=== PATIENT | male | born 1985 | race American Indian/Alaskan Native ===

== ENCOUNTER 2021-09-22 11:35 | Emergency (ER) | payer SELFPAY ==
[2021-09-22] MEDS ORDERED: TETANUS,DIPH,PERTUSS(ACELL) VACCINE 0.5 ML SYRINGE IM ONE (13:22)
--- NOTE | 2021-09-22 14:01 | XRay Report ---
RIGHT ANKLE 4 VIEW(S) INDICATION / CLINICAL INFORMATION: ankle pain COMPARISON: None available. FINDINGS: BONES / JOINT(S): Moderate widening of medial ankle clear space measuring 7 mm from deltoid ligament disruption/instability. Mildly displaced fracture of posterior malleolus. No significant arthritis. SOFT TISSUES: Moderate lateral and mild medial ankle soft tissue swelling ADDITIONAL FINDINGS: None. Signer Name: Bal Resendez MD Signed: 09/22/2021 1:57 PM Workstation Name: [id number]
--- NOTE | 2021-09-22 14:08 | XRay Report ---
RIGHT HAND 3 VIEW(S) INDICATION / CLINICAL INFORMATION: right hand injury COMPARISON: None available. FINDINGS: BONES / JOINT(S): No acute fracture or subluxation. No significant arthritis. SOFT TISSUES: No significant abnormality. ADDITIONAL FINDINGS: None. Signer Name: Bal Resendez MD Signed: 09/22/2021 2:04 PM Workstation Name: [id number]
--- NOTE | 2021-09-22 14:17 | Emergency Department Report ---
- General Chief Complaint: Wound/Laceration Stated Complaint: HAND PAIN Time Seen by Provider: 09/22/21 13:16 Source: patient Mode of arrival: Ambulatory Limitations: No Limitations - History of Present Illness Initial Comments: This is a 36-year-old male nontoxic, well nourished in appearance, no acute signs of distress presents to the ED with c/o of right hand/lower lip laceration and right ankle pain with swelling that occurred yesterday around 3 PM. Patient stated that he injured himself while at work and a hammer and twisted his ankle. Patient denies decreased sensation or range of motion but has pain with range of motion. Patient stated bleeding is under control. Denies any numbness, tingling, fever, chills, nausea, vomiting, chest pain, shortness of breath, hea dache or stiff neck. Patient denies any allergies to significant past medical history. Patient is that he is not up-to-date with tetanus. -: days(s) (1) Extremity Location: Right: Hand, Ankle Place: work Patient Tetanus UTD: No Context: accidental Associated Symptoms: pain. denies: loss of feeling/numbness, suspect foreign body present, unable to move injured part, weakness followed by dizziness, nausea/vomiting, fever - Related Data Previous Rx's Medication Instructions Recorded Last Taken Type Naproxen 500 mg PO Q12H PRN #12 tab 09/22/21 Unknown Rx Sulfamethoxazole/Trimethoprim 1 each PO BID #14 tab 09/22/21 Unknown Rx [Bactrim DS TAB] Allergies Allergy/AdvReac Type Severity Reaction Status Date / Time No Known Allergies Allergy Verified 09/22/21 12:07 ED Review of Systems ROS: Stated complaint: HAND PAIN Other details as noted in HPI Comment: All other systems reviewed and negative Constitutional: denies: chills, fever Eyes: denies: eye pain, eye discharge, vision change ENT: denies: ear pain, throat pain Respiratory: denies: cough, shortness of breath, wheezing Cardiovascular: denies: chest pain, palpitations Endocrine: no symptoms reported Gastrointestinal: denies: abdominal pain, nausea, diarrhea Genitourinary: denies: urgency, dysuria Musculoskeletal: denies: back pain, joint swelling, arthralgia Skin: denies: rash, lesions Neurological: denies: headache, weakness, paresthesias Psychiatric: denies: anxiety, depression Hematological/Lymphatic: denies: easy bleeding, easy bruising ED Past Medical Hx - Medications Home Medications: Home Medications Medication Instructions Recorded Confirmed Last Taken Type Naproxen 500 mg PO Q12H PRN #12 tab 09/22/21 Unknown Rx Sulfamethoxazole/Trimethoprim 1 each PO BID #14 tab 09/22/21 Unknown Rx [Bactrim DS TAB] ED Physical Exam - General Limitations: No Limitations General appearance: alert, in no apparent distress - Head Head exam: Present: normocephalic - Expanded Head Exam Expanded Head exam: Present: laceration 1 - 1 cm superifical lac - Eye Eye exam: Present: normal appearance, EOMI - Neck Neck exam: Present: normal inspection, full ROM. Absent: lymphadenopathy - Respiratory Respiratory exam: Absent: respiratory distress - Cardiovascular Cardiovascular Exam: Present: regular rate - Extremities Exam Extremities exam: Present: full ROM, tenderness, normal capillary refill. Absent: joint swelling - Expanded Upper Extremity Exam Right General: Present: normal inspection Shoulder Exam: Present: normal inspection, full ROM. Absent: tenderness, swelling Upper Arm exam: Present: normal inspection, full ROM. Absent: tenderness, swelling Elbow exam: Present: normal inspection, full ROM. Absent: tenderness, swelling Forearm Wrist exam: Present: normal inspection, full ROM. Absent: tenderness, swelling, abrasion, laceration, ecchymosis, deformity, crepidus, dislocation, erythema, tenderness over anatomical snuff box, pain with axial thumb loading Hand Wrist exam: Present: full ROM, tenderness, laceration. Absent: swelling, abrasion, ecchymosis, deformity, crepidus, dislocation, erythema, amputation, nail avulsion, subungual hematoma Hand L/R Front: 1 - Positive: laceration (4 cm superifical lac) Vascular: Present: normal capillary refill. Absent: vascular compromise (Neurovascular within normal limits) - Expanded Lower Extremity Exam Right Hip exam: Present: normal inspection, full ROM. Absent: tenderness, swelling Upper Leg exam: Present: normal inspection, full ROM. Absent: tenderness, swelling Knee exam: Present: normal inspection, full ROM. Absent: tenderness, swelling Lower Leg exam: Present: normal inspection, full ROM. Absent: tenderness, swelling, abrasion, laceration, ecchymosis, deformity, crepidus, dislocation, erythema, palpable cord, Eligio's sign Ankle exam: Present: normal inspection, full ROM, swelling. Absent: tenderness, abrasion, laceration, ecchymosis, deformity, crepidus, dislocation, erythema, anterior draw sign Foot/Toe exam: Present: normal inspection, full ROM. Absent: tenderness, swelling Neuro vascular tendon exam: Present: no vascular compromise Gait: Positive: observed and limited by pain - Back Exam Back exam: Present: normal inspection, full ROM. Absent: tenderness, CVA tenderness (R), CVA tenderness (L), muscle spasm, paraspinal tenderness, vertebral tenderness, rash noted - Neurological Exam Neurological exam: Present: alert, oriented X3, normal gait - Psychiatric Psychiatric exam: Present: normal affect, normal mood - Skin Skin exam: Present: warm, dry, intact, normal color. Absent: rash ED Course Vital Signs 09/22/21 12:05 Temperature 98 F Pulse Rate 99 H Respiratory 16 Rate Blood Pressure 126/81 [Right] O2 Sat by Pulse 100 Oximetry - Reevaluation(s) Reevaluation #1: 09/22/21 14:17 Patient is speaking in full sentences with no signs of distress noted. ED Medical Decision Making - Radiology Data [facility] [address] [place] [address] XRay Report Signed Patient: MELVIN MONTENEGRO MR#: [id number] 3 : 1985 Acct:[id number] Age/Sex: 36 / M ADM Date: 09/22/21 Loc: ED Attending Dr: Ordering Physician: NORA WEATHERS NP Date of Service: 09/22/21 Procedure(s): XR hand 3+V RT Accession Number(s): [id number] cc: NORA WEATHERS NP Fluoro Time In Minutes: RIGHT HAND 3 VIEW(S) INDICATION / CLINICAL INFORMATION: right hand injury COMPARISON: None available. FINDINGS: BONES / JOINT(S): No acute fracture or subluxation. No significant arthritis. SOFT TISSUES: No significant abnormality. ADDITIONAL FINDINGS: None. Signer Name: Bal Resendez MD Signed: 09/22/2021 2:04 PM Workstation Name: [id number] Transcribed By: WALT Dictated By: Bal Resendez MD Electronically Authenticated By: Bal Resendez MD Signed Date/Time: 09/22/21 1404 DD/ 02 TD/TT: [facility] [address] [place] [address] XRay Report Signed Patient: MELVIN MONTENEGRO MR#: [id number] 3 : 1985 Acct:[id number] Age/Sex: 36 / M ADM Date: 09/22/21 Loc: ED Attending Dr: Ordering Physician: NORA WEATHERS NP Date of Service: 09/22/21 Procedure(s): XR ankle 3+V RT Accession Number(s): [id number] cc: NORA WEATHERS NP Fluoro Time In Minutes: RIGHT ANKLE 4 VIEW(S) INDICATION / CLINICAL INFORMATION: ankle pain COMPARISON: None available. FINDINGS: BONES / JOINT(S): Moderate widening of medial ankle clear space measuring 7 mm from deltoid ligament disruption/instability. Mildly displaced fracture of posterior malleolus. No significant arthritis. SOFT TISSUES: Moderate lateral and mild medial ankle soft tissue swelling ADDITIONAL FINDINGS: None. Signer Name: Bal Resendez MD Signed: 09/22/2021 1:57 PM Workstation Name: [id number] Transcribed By: TL Dictated By: Bal Resendez MD Electronically Authenticated By: Bal Resendez MD Signed Date/Time: 09/22/21 1357 DD/ 1356 TD/TT: - Medical Decision Making This is a 36-year-old male that presents with laceration and ankle strain. Patient is stable and was examined by me. The laceration has been cleaned and sterile dressing applied. Due to symptoms of laceration occurred more than 16 hours, laceration closure will not be performed at this time. A sterile dressing has been applied. Patient received a booster tetanus in the ER. Patient was educated on proper wound care. Patient is notified of the imaging results with no questions noted by the patient. Patient is discharged with Bactrim. Patient received a ankle stirrup. Patient was instructed to refer to Follow-up with a primary care and orthopedic doctor in 3-5 days or if symptoms worsen and continue return to emergency room as soon as possible. At time of discharge, the patient does not seem toxic or ill in appearance. No acute signs of distress noted. Patient agrees to discharge treatment plan of care. No further questions noted by the patient. Critical care attestation.: If time is entered above; I have spent that time in minutes in the direct care of this critically ill patient, excluding procedure time. ED Disposition Clinical Impression: Laceration of right hand Qualifiers: Encounter type: initial encounter Foreign body presence: without foreign body Qualified Code(s): S61.411A - Laceration without foreign body of right hand, initial encounter Laceration of lower lip Qualifiers: Encounter type: initial encounter Qualified Code(s): S01.511A - Laceration without foreign body of lip, initial encounter Right ankle injury Qualifiers: Encounter type: initial encounter Qualified Code(s): S99.911A - Unspecified injury of right ankle, initial encounter Disposition: 01 HOME / SELF CARE / HOMELESS Is pt being admited?: No Does the pt Need Aspirin: No Condition: Stable Additional Instructions: Follow-up with a primary care and orthopedic doctor in 3-5 days or if symptoms worsen and continue return to emergency room as soon as possible. No physical activity that extremity until cleared by orthopedic doctor Prescriptions: Sulfamethoxazole/Trimethoprim [Bactrim DS TAB] 1 each PO BID #14 tab Naproxen 500 mg PO Q12H PRN #12 tab PRN Reason: Pain , Severe (7-10) Referrals: PRIMARY MD ELENA [Primary Care Provider] - 3-5 Days DELMY CUTLER MD [Staff Physician] - 3-5 Days VANDANA MARTIN MD [Staff Physician] - 3-5 Days Forms: Work/School Release Form(ED) Time of Disposition: 14:21
[2021-09-22 15:09] VITALS: BP 136/102
== END 2021-09-22 15:08 | disposition home or self-care (01) ==
LOC: ED 11:35
DX: S61.411A Laceration without foreign body of right hand, initial encounter (principal); S01.511A Laceration without foreign body of lip, initial encounter; S99.911A Unspecified injury of right ankle, initial encounter; X50.1XXA Overexertion from prolonged static or awkward postures, initial encounter; Y93.89 Activity, other specified; Y92.89 Other specified places as the place of occurrence of the external cause; Y99.8 Other external cause status
CPT/HCPCS: 90471; 90715; 99283

== ENCOUNTER 2021-10-08 12:45 | Emergency (ER) | payer SELFPAY ==
[2021-10-08 14:00] VITALS: BP 154/95
--- NOTE | 2021-10-08 16:21 | XRay Report ---
RIGHT ANKLE 4 VIEWS INDICATION / CLINICAL INFORMATION: persistent pain and swelling COMPARISON: None available. FINDINGS: BONES / JOINT(S): No acute fracture. No significant arthritis. SOFT TISSUES: Widening at the ankle mortice medially consistent with ligamentous injury. Bimalleolar soft tissue swelling. ADDITIONAL FINDINGS: None. Signer Name: Dre Whalen MD Signed: 10/08/2021 4:16 PM Workstation Name: [id number]
[2021-10-08] MEDS ORDERED: KETOROLAC 10 MG TAB PO ONE (16:27)
[2021-10-08] MEDS ORDERED: predniSONE 20 MG TAB PO ONE (16:27)
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
== END 2021-10-08 16:47 | disposition home or self-care (01) ==
LOC: ED 12:45
DX: S93.401A Sprain of unspecified ligament of right ankle, initial encounter (principal); V29.9XXA Motorcycle rider (driver) (passenger) injured in unspecified traffic accident, initial encounter; Y93.89 Activity, other specified; Y92.89 Other specified places as the place of occurrence of the external cause; Y99.8 Other external cause status
CPT/HCPCS: 99283